=== PATIENT | male | born 1990 | race Caucasian/White ===

== ENCOUNTER 2019-02-11 15:03 | Emergency (ER) | payer BC, OTHER, SELFPAY ==
[~2019-02-11] VITALS: Ht 180.3 cm; Wt 79.5 kg
[2019-02-11] MEDS ORDERED: FLON1SPR NARES (15:12)
[2019-02-11] MEDS ORDERED: ZYRTTAB8 PO (15:12)
[2019-02-11] MEDS ORDERED: IBUP-1022 PO (16:28)
[2019-02-11 16:36] VITALS: BP 131/95
--- NOTE | 2019-02-11 17:02 | REP ---
Left foot series: Four views. History: Injury. Findings: Four views of the left foot demonstrate overall normal mineralization. No acute fracture or subluxation is seen. There is some diffuse soft tissue swelling dorsally over the midfoot and forefoot. There is evidence of an old ununited chip fracture of the dorsal and lateral aspect of the distal end of the first metatarsal. This is well corticated and is not felt to be an acute injury. Impression: No acute fracture or subluxation seen. Diffuse soft tissue swelling dorsally. Electronically Signed by Anderson Carroll MD 02/11/2019 05:13 P
== END 2019-02-11 19:58 | disposition home or self-care (01) ==
LOC: M ED 15:03
DX: S90.32XA Contusion of left foot, initial encounter (principal); W50.0XXA Accidental hit or strike by another person, initial encounter; Y92.89 Other specified places as the place of occurrence of the external cause; Y93.66 Activity, soccer; F17.200 Nicotine dependence, unspecified, uncomplicated

== ENCOUNTER → 2022-06-24 | Outpatient (CLI) | payer BC ==
[~2022-06-24] MED LIST: FLON1SPR NARES; IBUP-1022 PO; ZYRTTAB8 PO
== END ==
LOC: M LAB 11:40
PROVIDERS: ATTEND Allergy & Immunology Allergy
DX: T78.1XXA Other adverse food reactions, not elsewhere classified, initial encounter (principal)